=== PATIENT | male | born 1960 | race Two or more races ===

== ENCOUNTER 2022-04-24 12:07 | Inpatient (IN) | payer OTHER ==
[~2022-04-24] VITALS: Ht 180.3 cm; Wt 77.7 kg
[2022-04-24] MEDS ORDERED: ASPirin 81 mg TAB PO ONE (12:45)
[2022-04-24 12:50] LABS: Basophils # (auto) 0 10 ^3/uL (0-0.2); Basophils % (auto) 0.5 % (0.0-2.0); Eosinophils # (auto) 0 10 ^3/uL (0-0.8); Eosinophils % (auto) 0.6 % (0.0-7.0); Hematocrit 45.9 % (41.0-53.0); Hemoglobin 14.9 g/dL (13.5-17.5); Lymphocytes # (auto) 2.3 10 ^3/uL (0.4-5.4); Lymphocytes % (auto) 30.6 % (10.0-50.0); Mean Corpuscular Hemoglobin 30.5 pg (28.0-32.0); Mean Corpuscular Hgb Conc. 32.4 g/dL (32.0-36.0); Mean Corpuscular Volume 94.2 fL (80.0-100.0); Monocytes # (auto) 0.5 10 ^3/uL (0-1.3); Monocytes % (auto) 6.7 % (0.0-12.0); Neutrophils # (auto) 4.6 10 ^3/uL (1.6-8.6); Neutrophils % (auto) 61.6 % (37.0-80.0); Red Blood Cells 4.88 10^6/uL (4.5-5.90); Red Cell Distribution Width 13.5 % (11.8-14.3); White Blood Cell 7.5 10^3/uL (4.4-10.8)
[2022-04-24 13:06] LABS: Potassium 4.2 mmol/L (3.5-5.1)
[2022-04-24 13:15] LABS: Partial Thromboplastin Time 26.4 sec (24.6-33.4)
[2022-04-24 13:16] LABS: Albumin 3.4 g/dL (3.4-5.0); BUN/Creatinine Ratio 15.7; Bilirubin, Total 0.7 mg/dL (0.2-1.0); CRP High Sensitivity 0.25 mg/dL (< 0.3); Calcium 8.8 mg/dL (8.5-10.1); Magnesium 1.8 mg/dL (1.6-2.6); Total Protein 6.5 g/dL (6.4-8.2)
[2022-04-24 13:48] LABS: Urine Bacteria NONE SEEN /hpf (None Seen); Urine Blood Negative /uL (Negative); Urine WBC 2 /hpf (0 - 3)
[2022-04-24] MEDS ORDERED: FUROSEMIDE 40 MG/4 ML VIAL IV ONE (15:15)
[2022-04-24] MEDS ORDERED: DOCUSATE SOD 100 MG CAP PO PRN (15:30)
[2022-04-24] MEDS ORDERED: ONDANSETRON HCL 4 MG/2 ML VIAL IV PRN (15:30)
[2022-04-24] MEDS ORDERED: NITROGLYCERIN 0.4 MG SL TAB SL PRN (15:30)
[2022-04-24] MEDS ORDERED: MORPHINE SULFATE INJ 2 MG/ml SYRG IV PRN (15:30)
[2022-04-24] MEDS ORDERED: ACETAMINOPHEN 325 MG TAB PO PRN (15:30)
[2022-04-24] MEDS ORDERED: METOPROLOL TARTRATE 1MG/1ML-5ML VIAL IV ONE (16:00)
[2022-04-24] MEDS ORDERED: DEXTROSE (50%) 50ML SYRG IV PRN (16:15)
[2022-04-24] MEDS ORDERED: PANTOPRAZOLE 40 MG/10 ML VIAL INJ IV ONE (16:15)
[2022-04-24] MEDS ORDERED: FUROSEMIDE 40 MG/4 ML VIAL IV SCH (16:22)
[2022-04-24 16:36] LABS: Cholesterol 121 mg/dL (< 200)
[2022-04-24 16:39] LABS: HDL Cholesterol 42 mg/dL (40-59); LDL Cholesterol 71 mg/dL (< 100); Triglycerides 143 mg/dL (< 150)
[2022-04-24] MEDS: ACCU-CHEK COMFORT CURVE STRIP VI SCH ×2 (17:13→22:04)
[2022-04-24] MEDS: InsuLIN REG 1unit/0.01ml Soln (100units/ml) SC SCH ×2 (17:15→21:59)
[2022-04-24] MEDS ORDERED: NICOTINE 14 MG/24HR TOPICAL PATCH TD ONE (17:30)
[2022-04-24] MEDS ORDERED: METOPROLOL TARTRATE 25 MG TAB PO ONE (17:30)
[2022-04-24] MEDS ORDERED: hydrALAZINE HCL 20 MG/ML VL IV PRN (17:30)
[2022-04-24] MEDS: FUROSEMIDE 40 MG/4 ML VIAL IV SCH ×2 (17:53→22:04)
[2022-04-24] MEDS: METOPROLOL TARTRATE 25 MG TAB PO SCH (17:54)
[2022-04-24 21:52] VITALS: BP 157/94
[2022-04-24] MEDS: ATORVASTATIN 20 MG TAB PO SCH (22:03)
[2022-04-25 05:11] VITALS: BP 147/89
[2022-04-25] MEDS: METOPROLOL TARTRATE 25 MG TAB PO SCH ×2 (05:48→21:05)
[2022-04-25] MEDS: InsuLIN REG 1unit/0.01ml Soln (100units/ml) SC SCH ×4 (05:48→21:20)
[2022-04-25] MEDS: ACCU-CHEK COMFORT CURVE STRIP VI SCH ×4 (05:49→21:18)
[2022-04-25 06:12] LABS: Basophils # (auto) 0.1 10 ^3/uL (0-0.2); Basophils % (auto) 1.6 % (0.0-2.0); Eosinophils # (auto) 0.1 10 ^3/uL (0-0.8); Eosinophils % (auto) 1.6 % (0.0-7.0); Hematocrit 45.7 % (41.0-53.0); Hemoglobin 15.1 g/dL (13.5-17.5); Lymphocytes # (auto) 2.2 10 ^3/uL (0.4-5.4); Lymphocytes % (auto) 35.9 % (10.0-50.0); Mean Corpuscular Hemoglobin 30.9 pg (28.0-32.0); Mean Corpuscular Hgb Conc. 33.1 g/dL (32.0-36.0); Mean Corpuscular Volume 93.4 fL (80.0-100.0); Monocytes # (auto) 0.4 10 ^3/uL (0-1.3); Monocytes % (auto) 6.4 % (0.0-12.0); Neutrophils # (auto) 3.4 10 ^3/uL (1.6-8.6); Neutrophils % (auto) 54.5 % (37.0-80.0); Nucleated Red Blood Cells % 0.1 %; Red Blood Cells 4.89 10^6/uL (4.5-5.90); Red Cell Distribution Width 13.2 % (11.8-14.3); White Blood Cell 6.2 10^3/uL (4.4-10.8)
[2022-04-25 06:31] LABS: Albumin 3.3 g/dL (3.4-5.0); Potassium 3.7 mmol/L (3.5-5.1)
[2022-04-25 06:34] LABS: BUN/Creatinine Ratio 21.1; Bilirubin, Total 0.9 mg/dL (0.2-1.0); Total Protein 6.4 g/dL (6.4-8.2)
[2022-04-25 08:00] VITALS: BP 152/87
[2022-04-25] MEDS ORDERED: ENOXAPARIN SOD 40 MG/0.4 ML SYRINGE SC SCH (10:00)
[2022-04-25] MEDS ORDERED: MAGNESIUM OXIDE 400 MG TAB PO ONE (10:00)
[2022-04-25] MEDS: FUROSEMIDE 40 MG/4 ML VIAL IV SCH (10:00)
[2022-04-25] MEDS: NICOTINE 14 MG/24HR TOPICAL PATCH TD SCH (10:00)
[2022-04-25] MEDS ORDERED: PANTOPRAZOLE 40 MG/10 ML VIAL INJ IV SCH (10:00)
[2022-04-25] MEDS: ASPirin 81 mg TAB PO SCH (10:01)
[2022-04-25 12:00] VITALS: BP 134/81
[2022-04-25] MEDS ORDERED: POTASSIUM CHL 20 Meq TABLET PO ONE (12:30)
[2022-04-25] MEDS ORDERED: LISINOPRIL 10 MG TAB PO ONE (12:30)
[2022-04-25 16:00] VITALS: BP 127/87
[2022-04-25 20:00] VITALS: BP 103/69
[2022-04-25] MEDS: ATORVASTATIN 20 MG TAB PO SCH (21:05)
[2022-04-25 22:00] VITALS: BP 103/69
[2022-04-26 05:00] VITALS: BP 134/78
[2022-04-26] MEDS: ACCU-CHEK COMFORT CURVE STRIP VI SCH ×2 (06:05→11:53)
[2022-04-26] MEDS: InsuLIN REG 1unit/0.01ml Soln (100units/ml) SC SCH ×2 (06:06→11:30)
[2022-04-26 06:42] LABS: Basophils # (auto) 0 10 ^3/uL (0-0.2); Basophils % (auto) 0.6 % (0.0-2.0); Eosinophils # (auto) 0.1 10 ^3/uL (0-0.8); Eosinophils % (auto) 1.6 % (0.0-7.0); Hematocrit 48.2 % (41.0-53.0); Hemoglobin 16.1 g/dL (13.5-17.5); INR 1.03 (0.9-1.15); Lymphocytes # (auto) 2.2 10 ^3/uL (0.4-5.4); Lymphocytes % (auto) 33.1 % (10.0-50.0); Mean Corpuscular Hemoglobin 31.5 pg (28.0-32.0); Mean Corpuscular Hgb Conc. 33.4 g/dL (32.0-36.0); Mean Corpuscular Volume 94.3 fL (80.0-100.0); Monocytes # (auto) 0.5 10 ^3/uL (0-1.3); Neutrophils # (auto) 3.8 10 ^3/uL (1.6-8.6); Neutrophils % (auto) 57.7 % (37.0-80.0); Partial Thromboplastin Time 25.1 sec (24.6-33.4); Red Blood Cells 5.11 10^6/uL (4.5-5.90); Red Cell Distribution Width 13.3 % (11.8-14.3); White Blood Cell 6.6 10^3/uL (4.4-10.8)
[2022-04-26 06:43] LABS: Calcium 9.4 mg/dL (8.5-10.1); Potassium 4.4 mmol/L (3.5-5.1)
[2022-04-26] MEDS ORDERED: FUROSEMIDE 40 MG/4 ML VIAL IV SCH (07:00)
[2022-04-26] MEDS ORDERED: IODIXANOL 320MG/ML 100ML BTL IV ONE ×2 (07:31→08:35)
[2022-04-26] MEDS ORDERED: IOHEXOL 350 MG/ML 100ML IJ ONE (07:32)
[2022-04-26] MEDS ORDERED: LIDOCAINE 2%HCL (LOCAL ANESTH.) INJ 20ML MDV ONE (07:32)
[2022-04-26] MEDS ORDERED: ANGIOMAX 250 MG VIAL IV ONE (07:40)
[2022-04-26] MEDS ORDERED: VERAPAMIL 2.5MG/ML INJ 2ML VIAL IV ONE (07:41)
[2022-04-26] MEDS ORDERED: MIDAZOLAM HCL 2MG/2ML 2ml VIAL (1mg/ml) ONE (07:41)
[2022-04-26] MEDS ORDERED: fentaNYL CITRATE 100 MCG/2 ML VL ONE (07:41)
[2022-04-26] MEDS ORDERED: HEPARIN SODIUM (PORCINE) 5000 UNITS/ML 1ML VIAL ONE (07:41)
[2022-04-26] MEDS ORDERED: SODIUM CHL 0.9% 0 ML ONE (07:41)
[2022-04-26 09:15] VITALS: BP 125/79
[2022-04-26 09:30] VITALS: BP 117/72
[2022-04-26 09:45] VITALS: BP 103/69
[2022-04-26 10:00] VITALS: BP 105/71
[2022-04-26] MEDS: ASPirin 81 mg TAB PO SCH (10:00)
[2022-04-26] MEDS ORDERED: LISINOPRIL 10 MG TAB PO SCH (10:00)
[2022-04-26] MEDS ORDERED: POTASSIUM CHL 20 Meq TABLET PO SCH (10:00)
[2022-04-26] MEDS: NICOTINE 14 MG/24HR TOPICAL PATCH TD SCH (10:00)
[2022-04-26] MEDS: METOPROLOL TARTRATE 25 MG TAB PO SCH (10:00)
[2022-04-26] MEDS ORDERED: ASPI-325 PO (13:27)
[2022-04-26] MEDS ORDERED: METF-370 PO (13:27)
[2022-04-26] MEDS ORDERED: POTA-220 PO (13:27)
[2022-04-26] MEDS ORDERED: LISI-716 PO (13:27)
[2022-04-26] MEDS ORDERED: DAPA1TAB4 PO (13:27)
[2022-04-26] MEDS ORDERED: FURO40TA4 PO (13:27)
[2022-04-26] MEDS ORDERED: MET25T PO (13:27)
[2022-04-26] MEDS ORDERED: ATOR20TA50 PO (13:27)
[2022-04-26 13:48] VITALS: BP 134/78
[2022-04-27] MEDS ORDERED: FUROSEMIDE 40 MG TAB PO SCH (10:00)
[2022-04-27] MEDS ORDERED: DAPAGLIFLOZIN 5 MG TAB PO SCH (10:00)
== END 2022-04-26 14:40 | disposition home or self-care (01) | DRG 280 ==
LOC: ER 12:07 → TELE 15:51 → TELE-EAST 21:14
PROVIDERS: ADMIT Nurse Practitioner Family; ATTEND Internal Medicine
PROC: 4A023N7 Measurement of Cardiac Sampling and Pressure, Left Heart, Percutaneous Approach (ICD-10-PCS; principal; 2022-04-26)
PROC: B211YZZ Fluoroscopy of Multiple Coronary Arteries using Other Contrast (ICD-10-PCS; 2022-04-26)
PROC: B215YZZ Fluoroscopy of Left Heart using Other Contrast (ICD-10-PCS; 2022-04-26)
DX: I21.4 Non-ST elevation (NSTEMI) myocardial infarction (principal); I50.43 Acute on chronic combined systolic (congestive) and diastolic (congestive) heart failure; I42.9 Cardiomyopathy, unspecified; I16.1 Hypertensive emergency; I11.0 Hypertensive heart disease with heart failure; I25.10 Atherosclerotic heart disease of native coronary artery without angina pectoris; E11.65 Type 2 diabetes mellitus with hyperglycemia; Z82.49 Family history of ischemic heart disease and other diseases of the circulatory system; Z91.199 Patient's noncompliance with other medical treatment and regimen due to unspecified reason; Z71.6 Tobacco abuse counseling; F17.200 Nicotine dependence, unspecified, uncomplicated
CPT/HCPCS: 36415; 71045; 80048; 80053; 80061; 81001; 82728; 82962; 83036; 83735; 83880; 84443; 84484; 85025; 85379; 85610; 85730; 86141; 93005; 93306; 96374; 96375; 99152; C9113; G0378; J1815; J2250; Q9967

== ENCOUNTER 2024-11-25 09:29 | Inpatient (IN) | payer OTHER ==
[~2024-11-25] VITALS: Ht 185.4 cm; Wt 73.8 kg
[~2024-11-25 09:29] MED LIST: ASPI-325 PO; ATOR20TA50 PO; DAPA1TAB4 PO; FURO40TA4 PO; LISI10TA34 PO; MET25T PO; METF-370 PO; POTA-220 PO
--- NOTE | 2024-11-25 10:00 | ED.PDOC ---
History of Present Illness HPI Comments 63-year-old male presents with a chief complaint of SOB at rest and with exertion. Patient mentions that he was diagnosed with CHF before in the past and that his EF was 27%. Patient mentions that his symptoms he is feeling now feels similar to the last time when he was diagnosed with CHF. Patient is noncompliant with his medications and is a heavy cigarette smoker. Chief Complaint: Shortness of Breath Time Seen by MD: 09:35 Primary Care Provider: UNKNOWN Reviewed Notes: Medications, Allergies Allergies: Coded Allergies: NO KNOWN ALLERGIES (Unverified , 04/24/22) Home Meds Active Scripts Dapagliflozin Propanediol (Farxiga) 10 Mg Tab, 10 MG PO DAILY for 30 Days, #30 TAB 2 Refills Prov:FLAVIO JOHNSTON MD 04/26/22 Metformin Hydrochloride (Metformin Hcl) 500 Mg Tab, 1 TAB PO BID for 30 Days, #60 TAB 3 Refills Prov:FLAVIO JOHNSTON MD 04/26/22 Potassium Chloride (Klor-Con M20) 20 Meq Tab, 20 MEQ PO DAILY for 30 Days, #30 TAB 3 Refills Prov:FLAVIO JOHNSTON MD 04/26/22 Aspirin (Aspirin Low Dose) 81 Mg Tab, 81 MG PO DAILY for 30 Days, #30 TAB 3 Refills Prov:FLAVIO JOHNSTON MD 04/26/22 Atorvastatin Calcium (ATORVASTATIN CALCIUM) 20 Mg Tab, 40 MG PO HS for 40 Days, #80 TAB 3 Refills Prov:FLAVIO JOHNSTON MD 04/26/22 Lisinopril (Lisinopril) 10 Mg Tab, 10 MG PO DAILY for 30 Days, #30 TAB 3 Refills Prov:FLAVIO JOHNSTON MD 04/26/22 Furosemide (Furosemide) 40 Mg Tab, 40 MG PO QAM for 30 Days, #30 TAB 3 Refills Prov:FLAVIO JOHNSTON MD 04/26/22 Metoprolol Tartrate (Lopressor) 25 Mg Tb, 25 MG PO BID for 30 Days, #60 TAB 3 Refills Prov:FLAVIO JOHNSTON MD 04/26/22 Information Source: Patient Mode of Arrival: Ambulatory Severity: Moderate Timing: Days Duration: Since onset Prehospital treatment: None Past Medical History PAST MEDICAL HISTORY: CHF, DM Surgical History: Hernia Repair Family History Family History: Reviewed,noncontributory to illness Social History Smoker: Cigarettes, Greater Than 1 Pack/Day Alcohol: Denies ETOH Use Drugs: Denies Drug Use Lives In: Home Constitutional: denies: chills, diaphoresis, fatigue, fever, malaise, sweats, weakness, others EENTM: denies: blurred vision, double vision, ear bleeding, ear discharge, ear drainage, ear pain, ear ringing, eye pain, eye redness, hearing loss, mouth pain, mouth swelling, nasal discharge, nose bleeding, nose congestion, nose pain, photophobia, tearing, throat pain, throat swelling, voice changes, others Respiratory: reports: SOB at rest, shortness of breath, SOB with excertion; denies: cough, hemoptysis, orthopnea, stridor, wheezing, others Cardiovascular: denies: chest pain, dizzy spells, diaphoresis, Dyspnea on exertion, edema, irregular heart beat, left arm pain, lightheadedness, palpitations, PND, syncope, others Gastrointestinal: denies: abdomen distended, abdominal pain, blood streaked bowels, constipated, diarrhea, dysphagia, difficulty swallowing, hematemesis, melena, nausea, poor appetite, poor fluid intake, rectal bleeding, rectal pain, vomiting, others Genitourinary: denies: burning, dysuria, flank pain, frequency, hematuria, in continence, penile discharge, penile sore, pain, testicle pain, testicle swelling, urgency, others Neurological: denies: dizziness, fainting, headache, left sided numbness, left sided weakness, numbness, paresthesia, pre-existing deficit, right sided numbness, right sided weakness, seizure, speech problems, tingling, tremors, weakness, others Musculoskeletal: denies: back pain, gout, joint pain, joint swelling, muscle pain, muscle stiffness, neck pain, others Integumetry: denies: bruises, change in color, change in hair/nails, dryness, laceration, lesions, lumps, rash, wounds, others Allergic/Immunocompromised: denies: Difficulty Healing, Frequent Infections, Hives, Itching, others Hematologic/Lymphatic: denies: anemia, blood clots, easy bleeding, easy bruising, swollen glands, others Endocrine: denies: excessive hunger, excessive sweating, excessive thirst, excessive urination, flushing, intolerance to cold, intolerance to heat, unexplained weight gain, unexplained weight loss, others Psychiatric: denies: anxiety, bipolar disorder, depression, hopeless, panic disorder, schizophrenia, sleepless, suicidal, others All Other Systems: Reviewed and Negative Physical Exam General Appearance: Moderate Distress, Normal HEENT: Normal ENT Inspection, Pharynx Normal, TMs Normal Neck: Full Range of Motion, Non-Tender, Normal, Normal Inspection Respiratory: Chest Non-Tender, No Accessory Muscle Use, Other (Coarse breath sounds) Cardiovascular: No Edema, No JVD, No Murmur, No Gallop, Normal Peripheral Pulses, Regular Rate/Rhythm Breast Exam: Deferred Gastrointestinal: No Organomegaly, Non Tender, No Pulsatile Mass, Normal Bowel Sounds, Soft Genitalia: Deferred Pelvic: Deferred Rectal: Deferred Extremities: No calf tenderness, Pedal edema Musculoskeletal : Apperance: Normal 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 Was a procedure done?: No EKG EKG : Pulse Rate (adult): 91 [place]: Normal Cardiac Rhythm: NSR Block: LBBB Hypertrophy: LVH ST: Normal Differential Dx Considerations may include: CHF Electrolyte imbalance X-Ray, Labs, Meds, VS Vital Signs Date Time Temp Pulse Resp B/P (MAP) Pulse Ox O2 Delivery O2 Flow Rate FiO2 11/25/24 11:15 159/103 11/25/24 11:15 159/103 11/25/24 10:32 98.9 91 17 159/103 (121) 95 98.9 11/25/24 10:00 91 11/25/24 09:41 91 11/25/24 09:32 97.5 13 22 164/101 (122) 96 97.5 11/25/24 09:32 22 96 Room Air* 0 21 Lab Test 11/25/24 09:53 Range/Units White Blood Count 8.5 4.4-10.8 10^3/uL Red Blood Count 4.92 4.5-5.90 10^6/uL Hemoglobin 15.4 13.5-17.5 g/dL Hematocrit 46.0 41.0-53.0 % Mean Corpuscular Volume 93.7 80.0-100.0 fL Mean Corpuscular Hemoglobin 31.3 28.0-32.0 pg Mean Corpuscular Hemoglobin Concent 33.4 32.0-36.0 g/dL Red Cell Distribution Width 13.5 11.8-14.3 % Platelet Count 249 140-450 10^3/uL Mean Platelet Volume 7.0 6.9-10.8 fL Neutrophils (%) (Auto) 73.7 37.0-80.0 % Lymphocytes (%) (Auto) 19.9 10.0-50.0 % Monocytes (%) (Auto) 5.4 0.0-12.0 % Eosinophils (%) (Auto) 0.6 0.0-7.0 % Basophils (%) (Auto) 0.4 0.0-2.0 % Neutrophils # (Auto) 6.2 1.6-8.6 10 ^3/uL Lymphocytes # (Auto) 1.7 0.4-5.4 10 ^3/uL Monocytes # (Auto) 0.5 0-1.3 10 ^3/uL Eosinophils # (Auto) 0.1 0-0.8 10 ^3/uL Basophils # (Auto) 0 0-0.2 10 ^3/uL Nucleated Red Blood Cells 0.0 % Sodium Level 139 136-145 mmol/L Potassium Level 4.3 3.5-5.1 mmol/L Chloride Level 103 98-107 mmol/L Carbon Dioxide Level 30 20-31 mmol/L Anion Gap 6 5-15 Blood Urea Nitrogen 12 9-23 mg/dL Creatinine 0.78 0.700-1.30 mg/dL Glomerular Filtration Rate Calc 100 >90 mL/min BUN/Creatinine Ratio 15.4 10.0-20.0 Serum Glucose 219 H 74-106 mg/dL Calcium Level 9.7 8.7-10.4 mg/dL Total Bilirubin 0.6 0.2-1.0 mg/dL Direct Bilirubin 0.2 <0.3 mg/dL Aspartate Amino Transferase (AST) 20 13-40 U/L Alanine Aminotransferase (ALT) 28 7-40 U/L Alkaline Phosphatase 110 46-116 U/L Troponin I High Sensitivity 139 *H </=54 ng/L B-Type Natriuretic Peptide 1445.04 0-100 pg/mL Total Protein 7.1 5.7-8.2 g/dL Albumin 4.2 3.2-4.8 g/dL Triglycerides Level 87 < 150 mg/dL Cholesterol Level 137 < 200 mg/dL LDL Cholesterol 81 < 100 mg/dL HDL Cholesterol 50 40-59 mg/dL Thyroid Stimulating Hormone (TSH) 0.74 0.55-4.78 uIU/mL Current Medications Medications (Trade) Dose Ordered Sig/Jina Route Start Time Stop Time Status Last Admin Clonidine HCl (Catapres Tablet) 0.2 mg ONCE ONCE PO 11/25/24 09:45 11/25/24 09:46 DC 11/25/24 11:15 Patient alert. Complaining of shortness a breath. Vitals stable. Answering questions. BNP elevated. Was given Lasix. Cardiac marker elevated. Was given Lovenox. WBC within normal limits. Hemoglobin within normal limits. EKG reviewed does not show any acute changes left bundle branch block. Explained to the patient that he has congestive heart failure we will be admitted for further workup such as an echocardiogram. Cardiology consultation. Continue monitoring. Time of 1ST Reevaluation: 09:35 (EXPLAINED TO THE PATIENT THAT THEY MOST LIKELY WILL BE STAYING WITH US IN THE HOSPITAL.) Reevaluation 1ST: Unchanged Time of 2ND Reevaluation: 10:05 Reevaluation 2ND: Unchanged Patient Education/Counseling: Diagnosis, Treatment Family Education/Counseling: No Family Present Departure 1 Departure Time of Disposition: 10:47 Impression: Primary Impression: CHF (congestive heart failure) Qualified Codes: I50.43 - Acute on chronic combined systolic (congestive) and diastolic (congestive) heart failure Additional Impression: Demand ischemia Disposition: 09 ADMITTED INPATIENT Admit to: Med Surg Condition: Guarded Comments 11:05 - SPOKE WITH THE PATIENT REGARDING HIS RESULTS AND THAT WE WILL BE ADMITTING HIM TO THE HOSPITAL FOR FURTHER TREATMENT. PATIENT IS IN AGREEMENT WIT H THE PLAN OF CARE. Critical Care Note Critical Care Time?: Yes (90 min-critical care time only) Critical care comment: Shortness a breath elevated troponin continue monitoring Stability Stability form required: No Heart Score Heart Score: Heart Score Response (Comments) Value History Slightly Suspicious 0 EKG Normal 0 Age 45-64 1 Risk Factors >3 or Hx ASHD 2 Troponin >3 x's Normal limit 2 Total 5 I personally scribed for JEANNETTE SANCHEZ MD ([email or web address]) on 11/25/24 at 10:00. Electronically submitted by Valdo Gao ([email or web address]). I personally scribed for JEANNETTE SANCHEZ MD ([email or web address]) on 11/25/24 at 10:00. Electronically submitted by Valdo Gao ([email or web address]). JEANNETTE SANCHEZ MD November 25, 2024 10:00
[2024-11-25 10:04] LABS: Basophils # (auto) 0 10 ^3/uL (0-0.2); Basophils % (auto) 0.4 % (0.0-2.0); Eosinophils # (auto) 0.1 10 ^3/uL (0-0.8); Eosinophils % (auto) 0.6 % (0.0-7.0); Hemoglobin 15.4 g/dL (13.5-17.5); Lymphocytes # (auto) 1.7 10 ^3/uL (0.4-5.4); Lymphocytes % (auto) 19.9 % (10.0-50.0); Mean Corpuscular Hemoglobin 31.3 pg (28.0-32.0); Mean Corpuscular Hgb Conc. 33.4 g/dL (32.0-36.0); Mean Corpuscular Volume 93.7 fL (80.0-100.0); Monocytes # (auto) 0.5 10 ^3/uL (0-1.3); Monocytes % (auto) 5.4 % (0.0-12.0); Neutrophils # (auto) 6.2 10 ^3/uL (1.6-8.6); Neutrophils % (auto) 73.7 % (37.0-80.0); Platelet Count (auto) 249 10^3/uL (140-450); Red Blood Cells 4.92 10^6/uL (4.5-5.90); Red Cell Distribution Width 13.5 % (11.8-14.3); White Blood Cell 8.5 10^3/uL (4.4-10.8)
--- NOTE | 2024-11-25 10:06 | ECG ---
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
[2024-11-25 10:17] LABS: Chloride 103 mmol/L (98-107); Potassium 4.3 mmol/L (3.5-5.1); Sodium 139 mmol/L (136-145)
--- NOTE | 2024-11-25 10:17 | DVH ---
CHEST RADIOGRAPH Indication: sob Technique: Single frontal view of the chest was obtained COMPARISON: CHEST PORTABLE on DOS: 04/24/22, CXRP on DOS: 04/24/22 FINDINGS: Lines and Tubes: None Lungs: Pulmonary vascular congestion Pleura: No effusion. No pneumothorax. Cardiomediastinal contours: Cardiomegaly Bones: Unremarkable IMPRESSION: Mild pulmonary vascular congestion
[2024-11-25 10:18] LABS: Anion Gap 6 (5-15); Calcium 9.7 mg/dL (8.7-10.4); Carbon Dioxide 30 mmol/L (20-31)
[2024-11-25 10:23] LABS: BUN/Creatinine Ratio 15.4 (10.0-20.0); Blood Urea Nitrogen 12 mg/dL (9-23)
[2024-11-25 10:25] LABS: Glucose 219 mg/dL (74-106)
[2024-11-25] MEDS: FUROSEMIDE 40 MG/4 ML VIAL IV ONE (11:15)
[2024-11-25] MEDS: cloNIDine HCL 0.1 MG TAB PO ONE (11:15)
[2024-11-25] MEDS: ENOXAPARIN SOD 80 MG/0.8ML SYRINGE SC ONE (11:16)
[2024-11-25] MEDS ORDERED: HYDROcodone-ACET 5/325MG TAB PO PRN (12:15)
[2024-11-25] MEDS ORDERED: DOCUSATE SOD 100 MG CAP PO PRN (12:15)
[2024-11-25] MEDS ORDERED: MORPHINE SULFATE INJ 2 MG/ml SYRG IV PRN (12:15)
[2024-11-25] MEDS ORDERED: ONDANSETRON HCL 4 MG/2 ML VIAL IV PRN (12:15)
[2024-11-25] MEDS ORDERED: NITROGLYCERIN 0.4 MG SL TAB SL PRN (12:15)
[2024-11-25] MEDS ORDERED: ACETAMINOPHEN 325 MG TAB PO PRN (12:15)
--- NOTE | 2024-11-25 12:37 | DVHHP2 ---
History of Present Illness Reason for Visit: Shortness of breath History of Present Illness Berna Parker is a 63-year-old male with past medical history of diabetes, hypertension, and CHF, who came to the hospital for shortness of breath. Patient states the shortness of breath began a couple weeks ago when he developed a cold. He states it was improving, then worsened. He is having difficulty laying flat to sleep. He states he ran out of his medications and can not get an appointment with his primary care provider for 2 weeks. Cardiovascular: CHF, HTN, hyperipidemia Endocrine: Diabetes Past Surgical History: Hernia Repair Smoke: <1 pack per day ALCOHOL: none Drugs: None Lives: Alone Domestic Violence: Neg Review of Systems Constitutional: No: Fever, Chills, Sweats, Weakness, Malaise, Other Eyes: No: Pain, Vision change, Conjunctivae inflammation, Eyelid inflammation, Other, Redness ENT: No: Ear pain, Ear discharge, Nose pain, Nose discharge, Nose congestion, Mouth pain, Mouth swelling, Throat pain, Throat swelling, Other Respiratory: Shortness of breath, SOB with excertion; No: Cough, Dry, Wheezing, Hemoptysis, Pleuritic Pain, Sputum, Wheezing, Other Cardiovascular: No: Chest Pain, Palpitations, Orthopnea, Paroxysmal Noc. Dyspnea, Edema, Lt Headedness, Other Gastrointestinal: No: Nausea, Vomiting, Abdominal Pain, Diarrhea, Constipation, Melena, Hematochezia, Other Genitourinary: No Dysuria, No Frequency, No Incontinence, No Hematuria, No Retention, No Other Musculoskeletal: No: other, neck pain, shoulder pain, arm pain, back pain, hand pain, leg pain, foot pain Skin: No: Rash, Lesions, Jaundice, Bruising, Other Neurological: No: Weakness, Numbness, Incoordination, Change in speech, Confusion, Seizures, Other Allergies: Coded Allergies: NO KNOWN ALLERGIES (Unverified , 04/24/22) Medications Current Medications Medications Dose Ordered Sig/Jina Route Start Time Stop Time Status Last Admin Dose Admin Sodium Chloride 10 ml Q8HR IV 11/25/24 14:00 UNV Acetaminophen/ Hydrocodone Bitart 1 tab Q4HP PRN PO 11/25/24 12:15 UNV Ondansetron HCl 4 mg Q4HP PRN IV 11/25/24 12:15 UNV Docusate Sodium 100 mg BIDPRN PRN PO 11/25/24 12:15 UNV Acetaminophen 650 mg Q6HP PRN PO 11/25/24 12:15 UNV Nitroglycerin 0.4 mg Q5MINP PRN SL 11/25/24 12:15 UNV Morphine Sulfate 2 mg Q30M PRN IV 11/25/24 12:15 UNV Aspirin 81 mg DAILY PO 11/26/24 10:00 UNV Atorvastatin Calcium 40 mg HS PO 11/25/24 22:00 UNV Metoprolol Tartrate 25 mg BID PO 11/25/24 22:00 UNV Patient Own Medication 10 mg DAILY PO 11/26/24 10:00 UNV Patient Own Medication 10 mg DAILY PO 11/26/24 10:00 UNV Exam Vital Signs Vital Signs Date Time Temp Pulse Resp B/P (MAP) Pulse Ox O2 Delivery O2 Flow Rate FiO2 11/25/24 11:15 159/103 11/25/24 10:32 98.9 91 17 95 98.9 11/25/24 09:32 Room Air* 0 21 General Appearance: Alert, Oriented X3, Cooperative, mild distress HEENT: Atraumatic, PERRLA Cardiovascular: Regular rate, Normal S1, Normal S2, No murmurs Abdominal: Normal bowel sounds, Soft, No tenderness, No hepatospenomegaly Extremities: No clubbing, No cyanosis, No edema, Normal pulses, No tenderness/swelling Skin: No rashes, No breakdown, No significant lesion Neuro: Normal gait, Normal speech, Strength at 5/5 X4 ext, Normal tone Psych/Mental Status: Mental status NL, Mood NL Labs/Xrays Labs Test 11/25/24 09:53 Range/Units White Blood Count 8.5 4.4-10.8 10^3/uL Red Blood Count 4.92 4.5-5.90 10^6/uL Hemoglobin 15.4 13.5-17.5 g/dL Hematocrit 46.0 41.0-53.0 % Mean Corpuscular Volume 93.7 80.0-100.0 fL Mean Corpuscular Hemoglobin 31.3 28.0-32.0 pg Mean Corpuscular Hemoglobin Concent 33.4 32.0-36.0 g/dL Red Cell Distribution Width 13.5 11.8-14.3 % Platelet Count 249 140-450 10^3/uL Mean Platelet Volume 7.0 6.9-10.8 fL Neutrophils (%) (Auto) 73.7 37.0-80.0 % Lymphocytes (%) (Auto) 19.9 10.0-50.0 % Monocytes (%) (Auto) 5.4 0.0-12.0 % Eosinophils (%) (Auto) 0.6 0.0-7.0 % Basophils (%) (Auto) 0.4 0.0-2.0 % Neutrophils # (Auto) 6.2 1.6-8.6 10 ^3/uL Lymphocytes # (Auto) 1.7 0.4-5.4 10 ^3/uL Monocytes # (Auto) 0.5 0-1.3 10 ^3/uL Eosinophils # (Auto) 0.1 0-0.8 10 ^3/uL Basophils # (Auto) 0 0-0.2 10 ^3/uL Nucleated Red Blood Cells 0.0 % Sodium Level 139 136-145 mmol/L Potassium Level 4.3 3.5-5.1 mmol/L Chloride Level 103 98-107 mmol/L Carbon Dioxide Level 30 20-31 mmol/L Anion Gap 6 5-15 Blood Urea Nitrogen 12 9-23 mg/dL Creatinine 0.78 0.700-1.30 mg/dL Glomerular Filtration Rate Calc 100 >90 mL/min BUN/Creatinine Ratio 15.4 10.0-20.0 Serum Glucose 219 H 74-106 mg/dL Calcium Level 9.7 8.7-10.4 mg/dL Troponin I High Sensitivity 139 *H </=54 ng/L B-Type Natriuretic Peptide 1445.04 0-100 pg/mL CHEST RADIOGRAPH FINDINGS: Lines and Tubes: None Lungs: Pulmonary vascular congestion Pleura: No effusion. No pneumothorax. Cardiomediastinal contours: Cardiomegaly Bones: Unremarkable IMPRESSION: Mild pulmonary vascular congestion Assessment/Plan Assessment/Plan Assessment: Demand ischemia, CHF exacerbation, Pulmonary/Vascular congestion, Hyperglycemia, Elevated troponin, Elevated BNP, Uncontrolled diabetes, Plan: Admit to Tele, Cardiology consult, ECHO, Lasix, Manage/Monitor electrolytes, A1c, Home medications reconciled, Plan discussed with: Patient My Orders Orders - ADA HIGH Procedure Category Date Status Time Admit ADMIT 11/25/24 Transmitted 12:15 Code Status CODE 11/25/24 Transmitted 12:15 2 Gm Sodium Diet DIET 11/25/24 Transmitted Lunch Sodium Chloride Lock PHA 11/25/24 Logged (Saline Lock Ns) 14:00 Hydrocodone-Acet PHA 11/25/24 Logged 5/325mg Tab ([place] 12:15 Ondansetron Hcl PHA 11/25/24 Logged (Zofran) 12:15 Docusate Sodium PHA 11/25/24 Logged Capsule (Colace 12:15 Complete Blood Count LAB 11/26/24 Verified 04:00 Comprehensive LAB 11/26/24 Verified Metabolic Panel 04:00 Echo 2d Mode Cardiac US 11/25/24 Logged DOP 12:15 Condition: Serious CAN 11/25/24 In Process 12:15 Acetaminophen Tablet PHA 11/25/24 Logged (Tylenol Tablet) 12:15 Nitroglycerin PHA 11/25/24 Logged Sublingual (Ntrostat 12:15 Morphine Sulfate PHA 11/25/24 Logged Injection 12:15 Stat Ekg For Chest CAN 11/25/24 In Process Pain 12:15 Notify Md Of Changes CAN 11/25/24 In Process From Base 12:15 Email Operations Manager For [facility] 11/25/24 In Process 24 Hours 12:15 Emergency Dysrhythmia [facility] 11/25/24 In Process Protocol 12:15 Rhythm Strips Once [facility] 11/25/24 In Process Every Shift 12:15 Oxygen By Nasal RT 11/25/24 Transmitted Cannula 12:15 * Cardiology Consult CONS 11/25/24 Transmitted 12:15 Aspirin Enteric PHA 11/26/24 Logged Coated Tablet 10:00 Atorvastatin (Lipitor) PHA 11/25/24 Logged 22:00 Metoprolol Tartrate PHA 11/25/24 Logged Tablet (Lopressor Ta 22:00 (Nf) Dapagliflozin PHA 11/26/24 Logged Propanediol (Farxiga) 10:00 (Nf) Lisinopril PHA 11/26/24 Logged 10:00 Furosemide Tablet PHA 11/25/24 Logged (Lasix Tablet) 12:15 Furosemide Tablet PHA 11/26/24 Verified (Lasix Tablet) 06:00 Date of Service: November 25, 2024 Billing Provider: ADA HIGH Common Visit Codes: [id number] INP/OBS CARE (MOD) ADA HIGH November 25, 2024 12:37
[2024-11-25 14:31] LABS: Albumin 4.2 g/dL (3.2-4.8); Bilirubin, Direct 0.2 mg/dL (<0.3); Bilirubin, Total 0.6 mg/dL (0.2-1.0); Total Protein 7.1 g/dL (5.7-8.2)
--- NOTE | 2024-11-25 14:38 | DVHINCON2 ---
RANJIT HERNANDEZ RESDIENT 11/25/24 1438: Date Seen: November 25, 2024 Referring Physician STEPHANIA Barlow Reason for Consultation SOB History of Present Illness This is a 63-year-old male with past medical history of hypertension, diabetes, HFrEF (EF 25 to 30%, based on echo study on 2021) came to the hospital due to shortness of breaths since 2 weeks. Per patient, he got cold and developed flu- like symptoms (fever, sneezing, cough, and generalized weakness) 2 weeks back and subsequently developed shortness of bed 2 days later. SOB worsens upon lying on the bed, and makes him to wake up from sleep 3-4 times per night. He also reports palpitation. He also ran out of his medicine 1 week back. He denies chest pain, nausea, vomiting, sweating, and abdominal pain. Per patient, he underwent stress test around 2 years back, but the study was normal. He also reports of angiography, but does not remember the results. PMHx: Hypertension, diabetes, HFrEF PSHx: Hernia repair Family history: Noncontributory Social history: Current smoker with 20 pack year history, has history of heavy alcohol drank 30 years back, ex marijuana user, denies any other current drug use. Lives at [place] alone. Home medication: Aspirin 81 mg daily, atorvastatin 20 mg daily, dapagliflozin 10 mg daily, Lasix 40 mg daily, lisinopril 10 mg daily, metformin 500 mg b.i.d., metoprolol tartrate 25 mg b.i.d., potassium 20 mEq Allergic history: No known allergy Patient seen and examined at the bedside. Patient is still complaining of mild shortness of breaths. Upon my evaluation denies chest pain. Past Medical History Per H&P Past Surgical History Per H&P Family History Per H&P Social History Per H&P Allergies: Coded Allergies: NO KNOWN ALLERGIES (Unverified , 04/24/22) Allergies Per H&P Home Meds Active Scripts Dapagliflozin Propanediol (Farxiga) 10 Mg Tab, 10 MG PO DAILY for 30 Days, #30 TAB 2 Refills Prov:FLAVIO JOHNSTON MD 04/26/22 Metformin Hydrochloride (Metformin Hcl) 500 Mg Tab, 1 TAB PO BID for 30 Days, #60 TAB 3 Refills Prov:FLAVIO JOHNSTON MD 04/26/22 Potassium Chloride (Klor-Con M20) 20 Meq Tab, 20 MEQ PO DAILY for 30 Days, #30 TAB 3 Refills Prov:FLAVIO JOHNSTON MD 04/26/22 Aspirin (Aspirin Low Dose) 81 Mg Tab, 81 MG PO DAILY for 30 Days, #30 TAB 3 Refills Prov:FLAVIO JOHNSTON MD 04/26/22 Atorvastatin Calcium (ATORVASTATIN CALCIUM) 20 Mg Tab, 40 MG PO HS for 40 Days, #80 TAB 3 Refills Prov:FLAVIO JOHNSTON MD 04/26/22 Lisinopril (Lisinopril) 10 Mg Tab, 10 MG PO DAILY for 30 Days, #30 TAB 3 Refills Prov:FLAVIO JOHNSTON MD 04/26/22 Furosemide (Furosemide) 40 Mg Tab, 40 MG PO QAM for 30 Days, #30 TAB 3 Refills Prov:FLAVIO JOHNSTON MD 04/26/22 Metoprolol Tartrate (Lopressor) 25 Mg Tb, 25 MG PO BID for 30 Days, #60 TAB 3 Refills Prov:FLAVIO JOHNSTON MD 04/26/22 Home Meds Per H&P Current Medications Current Medications Medications (Trade) Dose Ordered Sig/Jina Route PRN Reason Start Time Stop Time Status Last Admin Sodium Chloride (Saline Lock Ns) 10 ml Q8HR IV 11/25/24 14:00 Acetaminophen/ Hydrocodone Bitart ([place] 5/325MG Tab) 1 tab Q4HP PRN PO MODERATE PAIN (4-6 PAIN SCALE) 11/25/24 12:15 Ondansetron HCl (Zofran) 4 mg Q4HP PRN IV NAUSEA / VOMITING 11/25/24 12:15 Docusate Sodium (Colace Capsule) 100 mg BIDPRN PRN PO FOR CONSTIPATION 11/25/24 12:15 Acetaminophen (Tylenol Tablet) 650 mg Q6HP PRN PO PAIN SCALE 1-3 OR TEMP>100.4 11/25/24 12:15 Nitroglycerin (Ntrostat Sublingual) 0.4 mg Q5MINP PRN SL FOR CHEST PAIN 11/25/24 12:15 Morphine Sulfate 2 mg Q30M PRN IV FOR CHEST PAIN 11/25/24 12:15 Aspirin (Ecotrin Enteric Coated Tablet) 81 mg DAILY PO 11/26/24 10:00 Atorvastatin Calcium (Lipitor) 40 mg HS PO 11/25/24 22:00 Metoprolol Tartrate (Lopressor Tablet) 25 mg BID PO 11/25/24 22:00 11/25/24 14:17 DC Empaglifozin (Jardiance) 10 mg DAILY PO 11/26/24 10:00 Lisinopril (Zestril Tablet) 10 mg DAILY PO 11/26/24 10:00 11/25/24 14:17 DC Furosemide (Lasix Tablet) 40 mg BIDD PO 11/26/24 06:00 Spironolactone (Aldactone) 25 mg DAILY PO 11/26/24 10:00 UNV Metoprolol Succinate (Toprol Xl) 25 mg DAILY PO 11/26/24 10:00 UNV Review of Systems Per H&P Vital Signs Vital Signs Date Time Temp Pulse Resp B/P (MAP) Pulse Ox O2 Delivery O2 Flow Rate FiO2 11/25/24 12:27 98.0 88 18 145/86 (105) 96 98.0 11/25/24 09:32 Room Air* 0 21 Physical Exam General Appearance: Alert, Oriented X3, Cooperative, No acute distress HEENT: Atraumatic, PERRLA, EOMI, Mucous membrane moist/pink Respiratory: Bilateral lower zone crackles Cardiovascular: Regular rate, Normal S1, Normal S2, No murmurs, no chest wall tenderness Abdominal: Normal bowel sounds, Soft, No tenderness, No hepatospenomegaly, No masses Extremities: Bilateral grade 1-2 pitting pedal edema Skin: No rashes, No breakdown, No significant lesion Neuro: Normal gait, Normal speech, Strength at 5/5 X4 ext, Normal tone, Sensation intact, Cranial nerves 3-12 NL, Reflexes 2+ Psych/Mental Status: Mental status NL, Mood NL Labs/Diagnostic Data Labs Test 11/25/24 09:53 Range/Units White Blood Count 8.5 4.4-10.8 10^3/uL Red Blood Count 4.92 4.5-5.90 10^6/uL Hemoglobin 15.4 13.5-17.5 g/dL Hematocrit 46.0 41.0-53.0 % Mean Corpuscular Volume 93.7 80.0-100.0 fL Mean Corpuscular Hemoglobin 31.3 28.0-32.0 pg Mean Corpuscular Hemoglobin Concent 33.4 32.0-36.0 g/dL Red Cell Distribution Width 13.5 11.8-14.3 % Platelet Count 249 140-450 10^3/uL Mean Platelet Volume 7.0 6.9-10.8 fL Neutrophils (%) (Auto) 73.7 37.0-80.0 % Lymphocytes (%) (Auto) 19.9 10.0-50.0 % Monocytes (%) (Auto) 5.4 0.0-12.0 % Eosinophils (%) (Auto) 0.6 0.0-7.0 % Basophils (%) (Auto) 0.4 0.0-2.0 % Neutrophils # (Auto) 6.2 1.6-8.6 10 ^3/uL Lymphocytes # (Auto) 1.7 0.4-5.4 10 ^3/uL Monocytes # (Auto) 0.5 0-1.3 10 ^3/uL Eosinophils # (Auto) 0.1 0-0.8 10 ^3/uL Basophils # (Auto) 0 0-0.2 10 ^3/uL Nucleated Red Blood Cells 0.0 % Sodium Level 139 136-145 mmol/L Potassium Level 4.3 3.5-5.1 mmol/L Chloride Level 103 98-107 mmol/L Carbon Dioxide Level 30 20-31 mmol/L Anion Gap 6 5-15 Blood Urea Nitrogen 12 9-23 mg/dL Creatinine 0.78 0.700-1.30 mg/dL Glomerular Filtration Rate Calc 100 >90 mL/min BUN/Creatinine Ratio 15.4 10.0-20.0 Serum Glucose 219 H 74-106 mg/dL Calcium Level 9.7 8.7-10.4 mg/dL Troponin I High Sensitivity 139 *H </=54 ng/L B-Type Natriuretic Peptide 1445.04 0-100 pg/mL Assessment Acute on chronic systolic heart failure Systolic heart failure NYHA class 3 NSTEMI, likely type 2 due to above History of hypertension Insulin type 2 Current smoker History of alcohol use disorder * Angiography on 04/24/2022 showed no significant coronary artery disease * Echo from 04/25/2022, shows concentric LVH, LV enlargement, EF is approximately 25 to 30% with moderate to severe global hypokinesis * EKGs shows sinus rhythm with LBBB * Trop I is mildly raised at 139, BNP is raised at 1445 Plan/Recommendation (Case discussed with Dr. Martinez) * Check echocardiogram, trop I trend * Lasix 20 mg b.i.d. , metoprolol succinate 25 mg daily * Continue aspirin, atorvastatin, Jardiance * Started spironolactone 25 mg daily and valsartan 40 mg daily * Rest of plan, per primary team Thank you for allowing us to participate in this patient's care. Please call if you have any questions or concerns. Plan discussed with: Patient, Other (RN) NYHA Physical activity limitations: Class3(Marked) ordinary Date of Service: November 25, 2024 Billing Provider: BRAYDEN MARTINEZ MD Cardiology Common Codes: [id number] INP/OBS CARE (High) BRAYDEN MARTINEZ MD 11/25/24 192: Allergies: Coded Allergies: NO KNOWN ALLERGIES (Unverified , 04/24/22) Home Meds Active Scripts Dapagliflozin Propanediol (Farxiga) 10 Mg Tab, 10 MG PO DAILY for 30 Days, #30 TAB 2 Refills Prov:FLAVIO JOHNSTON MD 04/26/22 Metformin Hydrochloride (Metformin Hcl) 500 Mg Tab, 1 TAB PO BID for 30 Days, #60 TAB 3 Refills Prov:FLAVIO JOHNSTON MD 04/26/22 Potassium Chloride (Klor-Con M20) 20 Meq Tab, 20 MEQ PO DAILY for 30 Days, #30 TAB 3 Refills Prov:FLAVIO JOHNSTON MD 04/26/22 Aspirin (Aspirin Low Dose) 81 Mg Tab, 81 MG PO DAILY for 30 Days, #30 TAB 3 Refills Prov:FLAVIO JOHNSTON MD 04/26/22 Atorvastatin Calcium (ATORVASTATIN CALCIUM) 20 Mg Tab, 40 MG PO HS for 40 Days, #80 TAB 3 Refills Prov:FLAVIO JOHNSTON MD 04/26/22 Lisinopril (Lisinopril) 10 Mg Tab, 10 MG PO DAILY for 30 Days, #30 TAB 3 Refills Prov:FLAVIO JOHNSTON MD 04/26/22 Furosemide (Furosemide) 40 Mg Tab, 40 MG PO QAM for 30 Days, #30 TAB 3 Refills Prov:FLAVIO JOHNSTON MD 04/26/22 Metoprolol Tartrate (Lopressor) 25 Mg Tb, 25 MG PO BID for 30 Days, #60 TAB 3 Refills Prov:FLAVIO JOHNSTON MD 04/26/22 Plan/Recommendation ACUTE ON CHRONIC CHF, PATIENT RAN OUT OF MEDS. NO OBVIOUS PEDAL EDEMA BUT HIGH JVD AND SYMPTOMATIC WITH SOB. EF WORSE NOW COMPARED TO PRIOR, APPROX 20% NO OBVIOUS LV THROMBUS. RE-ESTABLISH GDMT. LBBB ON EKG. PRIOR EKG WITH QRS >170 SO LIKELY NOT NEW. CANDIDATE FOR STOKER ERECTOR. WILL FOLLOW UP IN CLINIC. Cardiology Common Codes: [id number] INP/OBS CARE (High) RANJIT HERNANDEZ RESDIENT November 25, 2024 14:38 BRAYDEN MARTINEZ MD November 25, 2024 19:26
[2024-11-25] MEDS ORDERED: DEXTROSE (50%) 50ML SYRG IV PRN (15:15)
[2024-11-25] MEDS: SODIUM CHLOR 0.9% PF (SALINE LOCK) 10ML VIAL/SYR IV SCH (15:54)
[2024-11-25] MEDS: METOPROLOL SUCCINATE XL 50 MG TAB PO ONE (16:14)
[2024-11-25] MEDS: FUROSEMIDE 20 MG/2 ML VIAL IV ONE (16:19)
[2024-11-25] MEDS: FUROSEMIDE 20 MG TAB PO ONE (16:25)
[2024-11-25 17:00] VITALS: PULSE 79; RESP 21; O2SAT 97
[2024-11-25] MEDS: InsuLIN REG 1unit/0.01ml Soln (100units/ml) SC SCH ×2 (17:00→22:00)
[2024-11-25 17:25] LABS: COVID19 ANTIGEN SOFIA FIA NEGATIVE (NEGATIVE); Rapid Influenza A Negative (Negative); Rapid Influenza B Negative (Negative)
[2024-11-25] MEDS: ACCU-CHEK COMFORT CURVE STRIP VI SCH (17:26)
[2024-11-25] MEDS: SPIRONOLACTONE 25 MG TAB PO ONE (17:38)
[2024-11-25] MEDS: VALSARTAN 80 MG TAB PO ONE (18:03)
[2024-11-25 19:40] LABS: Amphetamine Screen, Urine Neg (NEGATIVE); Barbiturate Scree,Urine Neg (NEGATIVE); Benzodiazephine Screen, Urine Neg (NEGATIVE); Cannabinoid Screen, Urine Neg (NEGATIVE); Cocaine Screen, Urine Neg (NEGATIVE); Opiate Scree,Urine Neg (NEGATIVE); Phencyclidine Screen, Urine Neg (NEGATIVE)
[2024-11-25 21:13] VITALS: PULSE 68; O2SAT 97
[2024-11-25] MEDS ORDERED: METOPROLOL TARTRATE 25 MG TAB PO SCH (22:00)
[2024-11-25] MEDS: ATORVASTATIN 20 MG TAB PO SCH (22:13)
[2024-11-26 05:06] LABS: Basophils # (auto) 0 10 ^3/uL (0-0.2); Basophils % (auto) 0.5 % (0.0-2.0); Eosinophils # (auto) 0.1 10 ^3/uL (0-0.8); Eosinophils % (auto) 0.8 % (0.0-7.0); Hematocrit 46.6 % (41.0-53.0); Hemoglobin 15.4 g/dL (13.5-17.5); Lymphocytes # (auto) 1.6 10 ^3/uL (0.4-5.4); Lymphocytes % (auto) 24.1 % (10.0-50.0); Mean Corpuscular Hemoglobin 31.2 pg (28.0-32.0); Mean Corpuscular Volume 94.5 fL (80.0-100.0); Monocytes # (auto) 0.4 10 ^3/uL (0-1.3); Monocytes % (auto) 6.6 % (0.0-12.0); Neutrophils # (auto) 4.4 10 ^3/uL (1.6-8.6); Nucleated Red Blood Cells % 0.1 %; Platelet Count (auto) 249 10^3/uL (140-450); Red Blood Cells 4.93 10^6/uL (4.5-5.90); Red Cell Distribution Width 13.5 % (11.8-14.3); White Blood Cell 6.5 10^3/uL (4.4-10.8)
[2024-11-26 05:24] LABS: Alanine Aminotransferase 19 U/L (7-40); Alkaline Phosphatase 87 U/L (46-116); Anion Gap 8 (5-15); Aspartate Aminotransferase 16 U/L (13-40); Blood Urea Nitrogen 12 mg/dL (9-23); Calcium 9.1 mg/dL (8.7-10.4); Carbon Dioxide 29 mmol/L (20-31); Chloride 101 mmol/L (98-107); Potassium 4.4 mmol/L (3.5-5.1); Sodium 138 mmol/L (136-145); Total Protein 6.3 g/dL (5.7-8.2)
[2024-11-26 05:25] LABS: Albumin 3.8 g/dL (3.2-4.8); Bilirubin, Total 0.7 mg/dL (0.2-1.0); Glucose 169 mg/dL (74-106)
[2024-11-26] MEDS ORDERED: FUROSEMIDE 40 MG TAB PO SCH (06:00)
--- NOTE | 2024-11-26 07:54 | DVHSR ---
APPROVED REPORT EXAM: Two-dimensional and M-mode echocardiogram with Doppler and color Doppler. Blood Pressure: 145/86 mmHg INDICATION demand ischemia, chf exacerbation, lv assessment RISK FACTORS Height: 5'11, Weight: 172 DIMENSIONS LVDd5.9 (3.8-5.7cm)LA (2D)5.2 (1.9-4.0cm)Aortic Root3.8 (2.0-3.7cm) LVDs5.4 (2.5-4.0cm)LA (MM) (1.9-4.0cm)Aortic Cusp Exc2.1 (1.5-2.0cm) EF (%) 20.0 (55-70%)Rt. Atrium4.0 (1.9-4.0cm)Asc. Aorta cm IVSd1.1 (0.7-1.1cm)RV (D)4.6 (1.8-2.4cm) PWd1.3 (0.7-1.1cm) Mitral Valve MitralMitral Stenosis E wave1.37m/sMV Mean GR.4mmHg A wavem/sMV Peak GR.96mmHg E/A ratio0.02D MVAcm2 DECEL [id number] 1/2 Timems Aortic Valve Aortic ValveAortic Stenosis V10.66m/Alberto Mean GR.3mmHg V21.13m/Alberto Peak GR.5mmHg LVOT Diameter2.5 (1.8-2.4cm)Doppler AVA2.87cm2 Tricuspid Valve TR Velocity1.92m/s [id number] Other Information Quality : Technically LimitedRhythm : Technically limited study due to pt sitting up SOB Conclusion Technically good study. Sinus rhythm. Left ventricular enlargement. Right ventricular and right atrial enlargement. Left atrial enlargeme nt. Mild aortic root enlargement with dilation of the sinuses of Valsalva. Mild mitral annular calcification with thickening of the posterior and anterior mitral leaflets of mi [id number] degree. The aortic valve is normal. The tricuspid and pulmonic normal. Left ventricular systolic function is diminished. There is predominant anterior hypokinesis. Global underlying hypokinesis. EF is approximately 20%. Right ventricular function is mildly diminished. Mild tricuspid regurgitation. Mild to moderate mitral insufficiency. No pericardial effusion masses or vegetations.
[2024-11-26 08:00] VITALS: PULSE 72; RESP 19; O2SAT 96
[2024-11-26] MEDS: ASPirin-EC 81 mg tab PO SCH (09:23)
[2024-11-26] MEDS: SPIRONOLACTONE 25 MG TAB PO SCH (09:24)
[2024-11-26] MEDS: VALSARTAN 80 MG TAB PO SCH (09:24)
[2024-11-26] MEDS: EMPAGLIFLOZIN 10 MG TAB PO SCH (09:24)
[2024-11-26] MEDS: FUROSEMIDE 20 MG/2 ML VIAL IV SCH (09:25)
[2024-11-26] MEDS: METOPROLOL SUCCINATE XL 50 MG TAB PO SCH (09:25)
[2024-11-26] MEDS ORDERED: LISINOPRIL 5 MG TAB PO SCH (10:00)
[2024-11-26 11:11] LABS: Urine Bacteria None Seen /hpf (None Seen)
[2024-11-26 11:28] LABS: Urine Blood Negative /uL (Negative); Urine Clarity Clear (Clear); Urine Color Light-Yellow (Yellow); Urine Mucus FEW (None Seen); Urine Protein, UAD Negative (Negative); Urine Specific Gravity 1.013 (1.001-1.035); Urine Squamous Epithelial Cell None Seen /hpf (<5); Urine Urobilinogen Normal (Negative); Urine WBC 1 /HPF (0-3); Urine pH 5.5 (5.0-9.0)
--- NOTE | 2024-11-26 12:03 | DVHPN2 ---
Progress Note Date Seen: November 26, 2024 Medical Necessity Reason Pt with a Central, PICC or Fol: No Subjective Patient reports: No new complaints Review of Systems: HEENT:Normal, CVS:Normal, RESPIRATORY:Normal, GI:Normal, :Normal, MSK:Normal, NEURO:Normal Objective vital signs Vital Sign Date Time Temp Pulse Resp B/P (MAP) Pulse Ox O2 Delivery O2 Flow Rate FiO2 11/26/24 10:00 71 18 131/84 (100) 93 11/26/24 08:00 Nasal Cannula* 2 28 11/26/24 08:00 98.1 98.1 Total Intake and Output 11/25/24 11/25/24 11/26/24 15:00 23:00 07:00 Output Total 1000 ml Balance -1000 ml medications Current Medications Medications Dose Ordered Sig/Jina Route Start Time Stop Time Status Last Admin Dose Admin Sodium Chloride 10 ml Q8HR IV 11/25/24 14:00 11/26/24 05:41 10 ML Acetaminophen/ Hydrocodone Bitart 1 tab Q4HP PRN PO 11/25/24 12:15 Ondansetron HCl 4 mg Q4HP PRN IV 11/25/24 12:15 Docusate Sodium 100 mg BIDPRN PRN PO 11/25/24 12:15 Acetaminophen 650 mg Q6HP PRN PO 11/25/24 12:15 Nitroglycerin 0.4 mg Q5MINP PRN SL 11/25/24 12:15 Morphine Sulfate 2 mg Q30M PRN IV 11/25/24 12:15 Aspirin 81 mg DAILY PO 11/26/24 10:00 11/26/24 09:23 81 MG Atorvastatin Calcium 40 mg HS PO 11/25/24 22:00 11/25/24 22:13 40 MG Empaglifozin 10 mg DAILY PO 11/26/24 10:00 11/26/24 09:24 10 MG Spironolactone 25 mg DAILY PO 11/26/24 10:00 11/26/24 09:24 25 MG Metoprolol Succinate 25 mg DAILY PO 11/26/24 10:00 11/26/24 09:25 25 MG Furosemide 20 mg BIDD IV 11/26/24 08:00 11/26/24 09:25 20 MG Diagnostic Test (Pha) 1 strip ACHS 11/25/24 17:00 11/26/24 12:00 1 STRIP Insulin Human Regular HS SC 11/25/24 22:00 Insulin Human Regular AC SC 11/25/24 17:00 Dextrose 50 ml UD PRN IV 11/25/24 15:15 Valsartan 40 mg DAILY PO 11/26/24 10:00 11/26/24 09:24 40 MG Examination: GENERAL:Normal, HEENT:Normal, NECK:Normal, LUNGS:Normal, LUNGS:Abnormal (rales), CVS:Normal, ABDOMEN:Normal, MSK:Normal, SKIN:Normal, NEURO:Normal, :Normal laboratory and microbiology Laboratory Tests 11/26/24 04:38 Test 11/26/24 04:38 Range/Units Serum Glucose 169 H 74-106 mg/dL Problem List/Assessment/Plan Problem List/Assessment/Plan #1 acute resp failure: cont oxygen #2 acute on chronic systolic heart failure: lasix iv #3 htn #4 hyperlipidemia #5 nstemi ?type 2 #6 dm: ssi advance care planning- full code-time spent 19 mins Plan discussed with: Patient Date of Service: November 26, 2024 Billing Provider: FLAVIO JOHNSTON MD Common Visit Codes: [id number] INP/OBS CARE(HIGH) Secondary Visit Codes: [id number] CARE PLAN 30 MINUTES FLAVIO JOHNSTON MD November 26, 2024 12:03
--- NOTE | 2024-11-26 17:13 | DVHPNRES ---
Progress Note Date Seen: November 26, 2024 Resident Creating Document: RANJIT HERNANDEZ RESDIENT Medical Necessity Reason Pt with a Central, PICC or Fol: No Subjective Review of Systems Patient seen and examined at the bedside. Patient is feeling better since admission. Patient reports: No new complaints, Feels better Changes from previous H/P or p: Changes Objective vital signs Vital Sign Date Time Temp Pulse Resp B/P (MAP) Pulse Ox O2 Delivery O2 Flow Rate FiO2 11/26/24 16:00 65 20 118/80 (93) 96 11/26/24 12:00 98.1 98.1 11/26/24 08:00 Nasal Cannula* 2 28 Total Intake and Output 11/25/24 11/25/24 11/26/24 15:00 23:00 07:00 Output Total 1000 ml Balance -1000 ml medications Current Medications Medications Dose Ordered Sig/Jina Route Start Time Stop Time Status Last Admin Dose Admin Sodium Chloride 10 ml Q8HR IV 11/25/24 14:00 11/26/24 14:21 10 ML Acetaminophen/ Hydrocodone Bitart 1 tab Q4HP PRN PO 11/25/24 12:15 Ondansetron HCl 4 mg Q4HP PRN IV 11/25/24 12:15 Docusate Sodium 100 mg BIDPRN PRN PO 11/25/24 12:15 Acetaminophen 650 mg Q6HP PRN PO 11/25/24 12:15 Nitroglycerin 0.4 mg Q5MINP PRN SL 11/25/24 12:15 Morphine Sulfate 2 mg Q30M PRN IV 11/25/24 12:15 Aspirin 81 mg DAILY PO 11/26/24 10:00 11/26/24 09:23 81 MG Atorvastatin Calcium 40 mg HS PO 11/25/24 22:00 11/25/24 22:13 40 MG Empaglifozin 10 mg DAILY PO 11/26/24 10:00 11/26/24 09:24 10 MG Spironolactone 25 mg DAILY PO 11/26/24 10:00 11/26/24 09:24 25 MG Metoprolol Succinate 25 mg DAILY PO 11/26/24 10:00 11/26/24 09:25 25 MG Furosemide 20 mg BIDD IV 11/26/24 08:00 11/26/24 09:25 20 MG Diagnostic Test (Pha) 1 strip ACHS 11/25/24 17:00 11/26/24 12:00 1 STRIP Insulin Human Regular HS SC 11/25/24 22:00 Insulin Human Regular AC SC 11/25/24 17:00 Dextrose 50 ml UD PRN IV 11/25/24 15:15 Sacubitril/ Valsartan 1 tab BID PO 11/27/24 22:00 Examination General Appearance: Alert, Oriented X3, Cooperative, No acute distress HEENT: Atraumatic, PERRLA, EOMI, Mucous membrane moist/pink Respiratory: Clear to auscultation, Normal air movement Cardiovascular: Regular rate, Normal S1, Normal S2, No murmurs, no chest wall tenderness Abdominal: Normal bowel sounds, Soft, No tenderness, No hepatospenomegaly, No masses Extremities: No clubbing, No cyanosis, No edema, Normal pulses, No tenderness/swelling Skin: No rashes, No breakdown, No significant lesion Neuro: Normal gait, Normal speech, Strength at 5/5 X4 ext, Normal tone, Sensation intact, Cranial nerves 3-12 NL, Reflexes 2+ Psych/Mental Status: Mental status NL, Mood NL laboratory and microbiology Laboratory Tests 11/26/24 04:38 Test 11/26/24 04:38 Range/Units Serum Glucose 169 H 74-106 mg/dL Labs and/or images reviewed: Labs reviewed by me, Image(s) reviewed by me Problem List/Assessment/Plan Problem List/Assessment/Plan Acute on chronic systolic heart failure Systolic heart failure NYHA class 3 NSTEMI, likely type 2 due to above History of hypertension Insulin type 2 Current smoker History of alcohol use disorder * Angiography on 04/24/2022 showed no significant coronary artery disease * Echo shows, biventricular enlargement, with global left ventricular hypokinesia, LVEF 20% * EKGs shows sinus rhythm with LBBB * Trop I is mildly raised, downtrending Plan/Recommendation (Case discussed with Dr. Alves) * Check echocardiogram, Trop I downtrending * Lasix 20 mg b.i.d. , metoprolol succinate 25 mg daily * Continue aspirin, atorvastatin, Jardiance * Started spironolactone 25 mg daily and Entresto b.i.d. 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 Please call if you have any questions or concerns. Plan discussed with: Patient, Other (RN) Visit Coding Cardiology RES Date of Service: November 26, 2024 Billing Provider: BRAYDEN VILLANUEVA MD Cardiology Common Codes: [id number] INP/OBS CARE (High) RANJIT HERNANDEZ RESDIENT November 26, 2024 17:13
[2024-11-26 19:45] VITALS: RESP 20; O2SAT 90
[2024-11-27] VITALS (7 sets, daily range): BP systolic 116–132; BP diastolic 64–80; PULSE 67–78; RESP 16–18; TEMP 97.7–98.6; O2SAT 92–94
[2024-11-27 06:39] LABS: Potassium 4.3 mmol/L (3.5-5.1); Sodium 138 mmol/L (136-145)
[2024-11-27 06:40] LABS: Anion Gap 10 (5-15); Calcium 10.1 mg/dL (8.7-10.4); Carbon Dioxide 31 mmol/L (20-31)
[2024-11-27 06:41] LABS: Chloride 97 mmol/L (98-107)
[2024-11-27 06:45] LABS: BUN/Creatinine Ratio 20.2 (10.0-20.0); Blood Urea Nitrogen 22 mg/dL (9-23)
[2024-11-27 07:04] LABS: Glucose 145 mg/dL (74-106)
[2024-11-27] MEDS ORDERED: POTA-228 PO (14:24)
[2024-11-27] MEDS ORDERED: FURO1TAB31 PO (14:24)
[2024-11-27] MEDS ORDERED: SPIR25TA PO (14:24)
[2024-11-27] MEDS ORDERED: METF-370 PO (14:24)
[2024-11-27] MEDS ORDERED: METO25TA36 PO (14:24)
[2024-11-27] MEDS ORDERED: ASPI1TAB20 PO (14:24)
[2024-11-27] MEDS ORDERED: SACU1TAB PO (14:24)
[2024-11-27] MEDS ORDERED: ATOR-507 PO (14:24)
[2024-11-27] MEDS ORDERED: DAPA1TAB4 PO (14:24)
--- NOTE | 2024-11-27 14:25 | DVHDS2 ---
Discharge Summary Date of Admission November 25, 2024 at 12:15 Date of Discharge: November 27, 2024 Labs/Diagnostic Data: Laboratory Results Test 11/27/24 11:16 11/27/24 05:43 11/26/24 10:03 11/26/24 04:38 POC Glucose 151 mg/dl (70-106) Sodium Level 138 mmol/L (136-145) Potassium Level 4.3 mmol/L (3.5-5.1) Chloride Level 97 mmol/L (98-107) Carbon Dioxide Level 31 mmol/L (20-31) Anion Gap 10 (5-15) Blood Urea Nitrogen 22 mg/dL (9-23) Creatinine 1.09 mg/dL (0.700-1.30) Glomerular Filtration Rate Calc 76 mL/min (>90) BUN/Creatinine Ratio 20.2 (10.0-20.0) Serum Glucose 145 mg/dL (74-106) Calcium Level 10.1 mg/dL (8.7-10.4) Magnesium Level 2.0 mg/dL (1.6-2.6) Urine Color Light-yellow (Yellow) Urine Clarity Clear (Clear) Urine pH 5.5 (5.0-9.0) Urine Specific Elliott 1.013 (1.001-1.035) Urine Protein Negative (Negative) Urine Ketones Negative (Negative) Urine Blood Negative /uL (Negative) Urine Nitrite Negative (Negative) Urine Bilirubin Negative (Negative) Urine Urobilinogen Normal mg/dL (Negative) Urine Leukocyte Esterase Negative /uL (Negative) Urine RBC None seen /hpf (0 - 3) Urine Microscopic WBC 1 /HPF (0-3) Urine Squamous Epithelial Cells None seen /hpf (<5) Urine Bacteria None seen /hpf (None Seen) Urine Mucus Few (None Seen) Urine Glucose Normal mg/dL (Normal) White Blood Count 6.5 10^3/uL (4.4-10.8) Red Blood Count 4.93 10^6/uL (4.5-5.90) Hemoglobin 15.4 g/dL (13.5-17.5) Hematocrit 46.6 % (41.0-53.0) Mean Corpuscular Volume 94.5 fL (80.0-100.0) Mean Corpuscular Hemoglobin 31.2 pg (28.0-32.0) Mean Corpuscular Hemoglobin Concent 33.0 g/dL (32.0-36.0) Red Cell Distribution Width 13.5 % (11.8-14.3) Platelet Count 249 10^3/uL (140-450) Mean Platelet Volume 7.1 fL (6.9-10.8) Neutrophils (%) (Auto) 68.0 % (37.0-80.0) Lymphocytes (%) (Auto) 24.1 % (10.0-50.0) Monocytes (%) (Auto) 6.6 % (0.0-12.0) Eosinophils (%) (Auto) 0.8 % (0.0-7.0) Basophils (%) (Auto) 0.5 % (0.0-2.0) Neutrophils # (Auto) 4.4 10 ^3/uL (1.6-8.6) Lymphocytes # (Auto) 1.6 10 ^3/uL (0.4-5.4) Monocytes # (Auto) 0.4 10 ^3/uL (0-1.3) Eosinophils # (Auto) 0.1 10 ^3/uL (0-0.8) Basophils # (Auto) 0 10 ^3/uL (0-0.2) Nucleated Red Blood Cells 0.1 % Hemoglobin A1c 8.7 % A1C (<5.7) Total Bilirubin 0.7 mg/dL (0.2-1.0) Aspartate Amino Transferase (AST) 16 U/L (13-40) Alanine Aminotransferase (ALT) 19 U/L (7-40) Alkaline Phosphatase 87 U/L (46-116) Total Protein 6.3 g/dL (5.7-8.2) Albumin 3.8 g/dL (3.2-4.8) Test 11/25/24 19:05 11/25/24 16:54 11/25/24 16:02 11/25/24 09:53 Urine Opiates Screen Neg (NEGATIVE) Urine Fentanyl Screen Neg (NEGATIVE) Urine Barbiturates Screen Neg (NEGATIVE) Urine Phencyclidine Screen Neg (NEGATIVE) Urine Amphetamines Screen Neg (NEGATIVE) Urine Benzodiazepines Screen Neg (NEGATIVE) Urine Cocaine Screen Neg (NEGATIVE) Urine Cannabinoids Screen Neg (NEGATIVE) Troponin I High Sensitivity 136 ng/L (</=54) Influenza Type A Antigen Negative (Negative) Influenza Type B Antigen Negative (Negative) SARS-CoV-2 Antigen (Rapid) Negative (NEGATIVE) Direct Bilirubin 0.2 mg/dL (<0.3) B-Type Natriuretic Peptide 1445.04 pg/mL (0-100) Triglycerides Level 87 mg/dL (< 150) Cholesterol Level 137 mg/dL (< 200) LDL Cholesterol 81 mg/dL (< 100) HDL Cholesterol 50 mg/dL (40-59) Thyroid Stimulating Hormone (TSH) 0.74 uIU/mL (0.55-4.78) Other Laboratory Tests 11/27/24 05:43 11/26/24 04:38 Brief Hx & Hospital Course: see dictated note Condition at Discharge: Fair Final Diagnosis/Problems List chf Discharge Disposition: Home Discharge Instruct/Medications Diet: Cardiac 2g Na,low cholest Activity: No Restrictions, As Tolerated Follow Up/Referral: fu with pcp in 1 wk Medications: meds to pharmacy Discharge Statement: "Patient was advised to return to the ER or call 911 if any headaches, dizziness, shortness of breath, chest pain, abdominal pain, bleeding, fevers, or worsening of medical condition. Patient was counseled about treatment plan, medications, possible side effects, patient�verbalized understanding. All questions were answered to the best of my ability. This discharge took greater then 30 minutes in planning, reviewing documentation, counseling the patient, and discussing with other team members." ASSESSMENT ASSESSMENT Assessment chf Date of Service: November 27, 2024 Billing Provider: FLAVIO JOHNSTON MD Common Visit Codes: 99298-MRP/OBS DISCH DAY >30min FLAVIO JOHNSTON MD November 27, 2024 14:25
--- NOTE | 2024-11-27 16:56 | DVHDS ---
DATE OF DISCHARGE: 11/27/2024 HISTORY OF PRESENT ILLNESS: The patient is a 63-year-old gentleman who was admitted with history of increasing shortness of breath and ran out of his medications. He has a history of diabetes, hypertension, hyperlipidemia, and congestive heart failure. HOSPITAL COURSE: The patient had an echocardiogram done that showed ejection fraction of about 20%. The patient was diuresed with intravenous Lasix. He is now improved in his symptoms. The patient's hemoglobin A1c was 8.7. He will now be discharged home to resume his home medications and follow up with his primary in 1 week. New prescriptions have been sent for the patient. The patient's troponin levels were increased up to 136. FINAL DIAGNOSES: Therefore: * Acute on chronic systolic heart failure. * Acute respiratory failure. * Hypertension. * Diabetes mellitus. * Hyperlipidemia. * Non-STEMI, likely type 2. Time spent in discharge planning and review of plan with the patient and nursing was 38 minutes. MD MOHINI Causey/PAT TID: [id number] RECEIPT: [id number]
[2024-11-27] MEDS ORDERED: SACUBITRIL-VALSARTAN 24mg/26mg TAB PO SCH (22:00)
== END 2024-11-27 16:50 | disposition home or self-care (01) | DRG 280 ==
LOC: ER 09:29 → OVERFLOW 12:15 → TELE-EAST 11-26 22:59
PROVIDERS: ADMIT Internal Medicine; ATTEND Internal Medicine
DX: I11.0 Hypertensive heart disease with heart failure (principal); I50.43 Acute on chronic combined systolic (congestive) and diastolic (congestive) heart failure; I21.A1 Myocardial infarction type 2; J96.00 Acute respiratory failure, unspecified whether with hypoxia or hypercapnia; E11.65 Type 2 diabetes mellitus with hyperglycemia; E78.5 Hyperlipidemia, unspecified; Z20.822 Contact with and (suspected) exposure to COVID-19; F10.10 Alcohol abuse, uncomplicated; F17.210 Nicotine dependence, cigarettes, uncomplicated; I44.7 Left bundle-branch block, unspecified; Z79.82 Long term (current) use of aspirin; Z79.84 Long term (current) use of oral hypoglycemic drugs; Z79.899 Other long term (current) drug therapy; Z91.148 Patient's other noncompliance with medication regimen for other reason
CPT/HCPCS: 36415; 71045; 80048; 80053; 80061; 80076; 80307; 81001; 82962; 83036; 83735; 83880; 84443; 84484; 85025; 87426; 87804; 93005; 93306; 99291; 99292; G0378